=== PATIENT | female | born 1995 | race American Indian/Alaskan Native ===

== ENCOUNTER 2017-03-24 00:04 | Emergency (ER) | payer OTHER ==
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
[2017-03-24 05:39] VITALS: BP 117/77
== END 2017-03-24 05:31 | disposition home or self-care (01) ==
LOC: ED 00:04
DX: M25.511 Pain in right shoulder (principal); M54.2 Cervicalgia; M79.1 Myalgia; M54.5 Low back pain; F12.10 Cannabis abuse, uncomplicated; V49.50XA Passenger injured in collision with unspecified motor vehicles in traffic accident, initial encounter; Y93.89 Activity, other specified; Y99.8 Other external cause status; Y92.488 Other paved roadways as the place of occurrence of the external cause
CPT/HCPCS: 72040; 72100; 99283

== ENCOUNTER 2017-05-05 17:39 | Emergency (ER) | payer OTHER ==
[2017-05-05 20:28] LABS: Basophils % (Auto) 0.9 % (0.0-1.8); Eosinophils # (Auto) 0.1 K/mm3 (0.0-0.4); Eosinophils % (Auto) 1.8 % (0.0-4.3); Hematocrit 39.4 % (30.3-42.9); Hemoglobin 13.4 gm/dl (10.1-14.3); Lymphocytes # (Auto) 2.4 K/mm3 (1.2-5.4); Mean Corpuscular HGB Conc 34 % (30-34); Mean Corpuscular Hemoglobin 29 pg (28-32); Mean Corpuscular Volume 86 fl (79-97); Monocytes # (Auto) 0.4 K/mm3 (0.0-0.8); Platelet Count 263 K/mm3 (140-440); Red Blood Count 4.59 M/mm3 (3.65-5.03); Red Cell Distribution Width 13.8 % (13.2-15.2)
[2017-05-05 20:47] LABS: Alanine Aminotransferase 20 units/L (7-56); Albumin 4.5 g/dL (3.9-5); BUN/Creatinine Ratio 12; Blood Urea Nitrogen 7 mg/dL (7-17); Calcium 9.2 mg/dL (8.4-10.2); Hemolysis Index 18
[2017-05-06 04:12] VITALS: BP 108/55
--- NOTE | 2017-05-06 06:25 | Emergency Department Report ---
ED General Adult HPI - General Chief complaint: Nausea/Vomiting/Diarrhea Stated complaint: N/V Time Seen by Provider: 05/06/17 06:23 Source: patient Mode of arrival: Ambulatory Limitations: No Limitations - History of Present Illness Initial comments: Patient was very vague symptoms that have now resolved. Apparently she had a mild headache and some nausea. She decided to be evaluated in the emergency department. He reported some vague tingling in her left arm. Time I counted patient is resting comfortably. She is awoken from sleep. She has no complaints whatsoever. She is no longer nauseated. He does not have a headache. She does not have any focal weakness. -: minutes(s) Location: head Radiation: non-radiation Severity scale (0 -10): 2 Quality: other (did not describe) Consistency: now resolved Improves with: none Worsens with: none Associated Symptoms: denies other symptoms, nausea/vomiting Treatments Prior to Arrival: none - Related Data Previous Rx's Medication Instructions Recorded Last Taken Type Cyclobenzaprine [Flexeril] 10 mg PO TID PRN 4 Days #12 tablet 03/24/17 Unknown Rx Ibuprofen [Motrin] 600 mg PO Q8H PRN 5 Days #15 tablet 03/24/17 Unknown Rx Butalb/Acetamin/Caff 50-325-40 1 tab PO Q6HR PRN #7 tab 05/06/17 Unknown Rx [Fioricet] Ondansetron [Zofran Odt] 4 mg PO Q6H #7 tab.rapdis 05/06/17 Unknown Rx Allergies Allergy/AdvReac Type Severity Reaction Status Date / Time No Known Allergies Allergy Verified 05/05/17 17:44 ED Review of Systems ROS: Stated complaint: N/V Other details as noted in HPI Constitutional: denies: chills, fever Eyes: denies: eye pain, eye discharge, vision change ENT: denies: ear pain, throat pain Respiratory: denies: cough, shortness of breath, wheezing Cardiovascular: denies: chest pain, palpitations Endocrine: no symptoms reported Gastrointestinal: nausea, vomiting. denies: abdominal pain, diarrhea Genitourinary: denies: urgency, dysuria, discharge Musculoskeletal: denies: back pain, joint swelling, arthralgia Skin: denies: rash, lesions Neurological: headache. denies: weakness, paresthesias Psychiatric: denies: anxiety, depression Hematological/Lymphatic: denies: easy bleeding, easy bruising ED Past Medical Hx - Past Medical History Previous Medical History?: No - Surgical History Additional Surgical History: Rt ACL - Social History Smoking Status: Never Smoker Substance Use Type: Alcohol, Marijuana - Medications Home Medications: Home Medications Medication Instructions Recorded Confirmed Last Taken Type Cyclobenzaprine [Flexeril] 10 mg PO TID PRN 4 Days #12 tablet 03/24/17 Unknown Rx Ibuprofen [Motrin] 600 mg PO Q8H PRN 5 Days #15 tablet 03/24/17 Unknown Rx Butalb/Acetamin/Caff 50-325-40 1 tab PO Q6HR PRN #7 tab 05/06/17 Unknown Rx [Fioricet] Ondansetron [Zofran Odt] 4 mg PO Q6H #7 tab.rapdis 05/06/17 Unknown Rx ED Physical Exam - General Limitations: No Limitations General appearance: alert, in no apparent distress - Head Head exam: Present: atraumatic, normocephalic - Eye Eye exam: Present: normal appearance, PERRL, EOMI. Absent: scleral icterus - ENT ENT exam: Present: normal exam, mucous membranes moist - Neck Neck exam: Present: normal inspection. Absent: tenderness, meningismus - Respiratory Respiratory exam: Present: normal lung sounds bilaterally. Absent: respiratory distress - Cardiovascular Cardiovascular Exam: Present: regular rate, normal rhythm. Absent: systolic murmur, diastolic murmur, rubs, gallop - GI/Abdominal GI/Abdominal exam: Present: soft, normal bowel sounds. Absent: distended, tenderness, guarding, rebound - Extremities Exam Extremities exam: Present: normal inspection - Back Exam Back exam: Present: normal inspection. Absent: CVA tenderness (R), CVA tenderness (L) - Neurological Exam Neurological exam: Present: alert, oriented X3, CN II-XII intact. Absent: motor sensory deficit - Psychiatric Psychiatric exam: Present: normal affect, normal mood - Skin Skin exam: Present: warm, dry, intact, normal color. Absent: rash ED Course Vital Signs 05/05/17 05/06/17 05/06/17 17:45 04:10 04:40 Temperature 98.5 F 98.2 F Pulse Rate 68 61 Respiratory 18 18 18 Rate Blood Pressure 112/70 108/55 O2 Sat by Pulse 100 100 99 Oximetry - Reevaluation(s) Reevaluation #1: This is an asymptomatic patient with mild symptoms of headache and nausea for less than an hour. I do not think that she requires imaging study at this time. Laboratory results were normal. Appropriate for outpatient follow-up. 05/06/17 07:04 ED Medical Decision Making - Lab Data Result diagrams: 05/05/17 19:50 05/05/17 19:50 Laboratory Results - last 24 hr 05/05/17 05/05/17 05/05/17 19:50 19:50 19:50 WBC 5.1 RBC 4.59 Hgb 13.4 Hct 39.4 MCV 86 MCH 29 MCHC 34 RDW 13.8 Plt Count 263 Lymph % (Auto) 47.0 H Whitley % (Auto) 7.0 Eos % (Auto) 1.8 Baso % (Auto) 0.9 Lymph # 2.4 Whitley # 0.4 Eos # 0.1 Baso # 0.0 Seg Neutrophils % 43.3 Seg Neutrophils # 2.2 Sodium 137 Potassium 3.8 Chloride 97.5 L Carbon Dioxide 27 Anion Gap 16 BUN 7 Creatinine 0.6 L Estimated GFR > 60 BUN/Creatinine Ratio 12 Glucose 84 Calcium 9.2 Total Bilirubin 0.60 AST 20 ALT 20 Alkaline Phosphatase 62 Total Protein 7.6 Albumin 4.5 Albumin/Globulin Ratio 1.5 HCG, Qual Negative Laboratory Results - last 24 hr 05/05/17 05/05/17 05/05/17 19:50 19:50 19:50 WBC 5.1 RBC 4.59 Hgb 13.4 Hct 39.4 MCV 86 MCH 29 MCHC 34 RDW 13.8 Plt Count 263 Lymph % (Auto) 47.0 H Whitley % (Auto) 7.0 Eos % (Auto) 1.8 Baso % (Auto) 0.9 Lymph # 2.4 Whitley # 0.4 Eos # 0.1 Baso # 0.0 Seg Neutrophils % 43.3 Seg Neutrophils # 2.2 Sodium 137 Potassium 3.8 Chloride 97.5 L Carbon Dioxide 27 Anion Gap 16 BUN 7 Creatinine 0.6 L Estimated GFR > 60 BUN/Creatinine Ratio 12 Glucose 84 Calcium 9.2 Total Bilirubin 0.60 AST 20 ALT 20 Alkaline Phosphatase 62 Total Protein 7.6 Albumin 4.5 Albumin/Globulin Ratio 1.5 HCG, Qual Negative Laboratory Results - last 24 hr 05/05/17 05/05/17 05/05/17 19:50 19:50 19:50 WBC 5.1 RBC 4.59 Hgb 13.4 Hct 39.4 MCV 86 MCH 29 MCHC 34 RDW 13.8 Plt Count 263 Lymph % (Auto) 47.0 H Whitley % (Auto) 7.0 Eos % (Auto) 1.8 Baso % (Auto) 0.9 Lymph # 2.4 Whitley # 0.4 Eos # 0.1 Baso # 0.0 Seg Neutrophils % 43.3 Seg Neutrophils # 2.2 Sodium 137 Potassium 3.8 Chloride 97.5 L Carbon Dioxide 27 Anion Gap 16 BUN 7 Creatinine 0.6 L Estimated GFR > 60 BUN/Creatinine Ratio 12 Glucose 84 Calcium 9.2 Total Bilirubin 0.60 AST 20 ALT 20 Alkaline Phosphatase 62 Total Protein 7.6 Albumin 4.5 Albumin/Globulin Ratio 1.5 HCG, Qual Negative Urine Color Urine Turbidity Urine pH Ur Specific [place] Urine Protein Urine Glucose (UA) Urine Ketones Urine Blood Urine Nitrite Urine Bilirubin Urine Urobilinogen Ur Leukocyte Esterase Urine WBC (Auto) Urine RBC (Auto) U Epithel Cells (Auto) Urine Mucus 05/06/17 06:44 WBC RBC Hgb Hct MCV MCH MCHC RDW Plt Count Lymph % (Auto) Whitley % (Auto) Eos % (Auto) Baso % (Auto) Lymph # Whitley # Eos # Baso # Seg Neutrophils % Seg Neutrophils # Sodium Potassium Chloride Carbon Dioxide Anion Gap BUN Creatinine Estimated GFR BUN/Creatinine Ratio Glucose Calcium Total Bilirubin AST ALT Alkaline Phosphatase Total Protein Albumin Albumin/Globulin Ratio HCG, Qual Urine Color Yellow Urine Turbidity Clear Urine pH 5.0 Ur Specific [place] 1.023 Urine Protein <15 mg/dl Urine Glucose (UA) Neg Urine Ketones Neg Urine Blood Neg Urine Nitrite Neg Urine Bilirubin Neg Urine Urobilinogen < 2.0 Ur Leukocyte Esterase Neg Urine WBC (Auto) 1.0 Urine RBC (Auto) < 1.0 U Epithel Cells (Auto) 2.0 Urine Mucus Few Critical care attestation.: If time is entered above; I have spent that time in minutes in the direct care of this critically ill patient, excluding procedure time. ED Disposition Clinical Impression: Vomiting Qualifiers: Vomiting type: unspecified Vomiting Intractability: unspecified Nausea presence : with nausea Qualified Code(s): R11.2 - Nausea with vomiting, unspecified Headache Qualifiers: Headache type: unspecified Headache chronicity pattern: unspecified pattern Intractability: not intractable Qualified Code(s): R51 - Headache Disposition: TO HOME OR SELFCARE Is pt being admited?: No Does the pt Need Aspirin: No Condition: Stable Instructions: Acute Headache (ED), Acute Nausea and Vomiting (ED) Additional Instructions: Return any acute change or recurrent symptoms. Follow-up with a primary care provider. Rx for headache and nausea. Return if the headache is significant in intensity. Prescriptions: Butalb/Acetamin/Caff 50-325-40 [Fioricet] 1 tab PO Q6HR PRN #7 tab PRN Reason: Headache Ondansetron [Zofran Odt] 4 mg PO Q6H #7 tab.rapdis Referrals: PRIMARY CARE, [Primary Care Provider] - 3-5 Days [facility] [Provider Group] - 3-5 Days Time of Disposition: 07:49
[2017-05-06] MEDS ORDERED: ZOFRAN ODT PO ONE (06:34)
[2017-05-06 07:06] LABS: Bilirubin,Urine NEG (Negative); Blood,Urine NEG (Negative); Color,Urine Yellow (Yellow); Mucus,Urine FEW /HPF; Nitrite,Urine NEG (Negative); Protein,Urine <15 mg/dL mg/dL (Negative); RBC,Urine < 1.0 /HPF (0.0-6.0); Urobilinogen,Urine < 2.0 mg/dL (<2.0)
== END 2017-05-06 08:30 | disposition home or self-care (01) ==
LOC: ED 17:39
DX: R51 Headache (principal); R11.2 Nausea with vomiting, unspecified; R20.2 Paresthesia of skin; F12.10 Cannabis abuse, uncomplicated
CPT/HCPCS: 36415; 80053; 81001; 84703; 85025; 99283

== ENCOUNTER 2017-06-15 14:13 | Emergency (ER) | payer SELFPAY ==
[2017-06-15 14:32] VITALS: BP 109/59
== END 2017-06-15 18:10 | disposition left against medical advice (07) ==
LOC: ED 14:13
DX: R07.9 Chest pain, unspecified (principal); Z53.21 Procedure and treatment not carried out due to patient leaving prior to being seen by health care provider

== ENCOUNTER 2017-07-24 17:52 | Emergency (ER) | payer SELFPAY ==
[2017-07-24 18:07] VITALS: BP 107/61
== END 2017-07-24 20:15 | disposition left against medical advice (07) ==
LOC: ED 17:52
DX: R07.9 Chest pain, unspecified (principal); Z53.21 Procedure and treatment not carried out due to patient leaving prior to being seen by health care provider
CPT/HCPCS: 93005; 93010